=== PATIENT | female | born 1985 | race Two or more races ===

== ENCOUNTER 2022-11-28 15:01 | Inpatient (IN) | payer BC, MEDICAID ==
[~2022-11-28] VITALS: Ht 147.3 cm; Wt 77.0 kg
[2022-11-28 16:28] LABS: BASOPHILS # (AUTO) 0.1 X10'3 (0-0.2); BASOPHILS % (AUTO) 1.1 % (0-1); EOSINOPHILS # (AUTO) 0.1 X10'3 (0-0.9); EOSINOPHILS % (AUTO) 1.9 % (0-6); HEMATOCRIT 38.8 % (35.0-45.0); HEMOGLOBIN 12.1 g/dl (12.0-16.0); LYMPHOCYTES # (AUTO) 1.2 X10'3 (1.1-4.8); LYMPHOCYTES % (AUTO) 19.2 % (21-51); MEAN CORPUSCULAR HEMOGLOBIN 25.8 PG (27.0-31.0); MEAN CORPUSCULAR HGB CONC 31.1 g/dL (33.0-36.5); MEAN CORPUSCULAR VOLUME 82.9 FL (78-98); MEAN PLATELET VOLUME 7.9 FL (7.4-10.4); MONOCYTES # (AUTO) 0.6 X10'3 (0-0.9); NEUTROPHILS # (AUTO) 4.3 X10'3 (1.8-7.7); NEUTROPHILS % (AUTO) 67.8 % (42-75); PLATELET COUNT 353 X10'3 (140-440); RED BLOOD COUNT 4.68 X10'6 (4.20-5.60); RED CELL DISTRIBUTION WIDTH 20.5 % (11.5-14.5); WHITE BLOOD COUNT 6.3 X10'3 (4.5-11.0)
[2022-11-28 16:44] LABS: ALANINE AMINOTRANSFERASE 19 U/L (12-78); ALBUMIN 1.8 G/DL (3.4-5.0); ALBUMIN/GLOBULIN RATIO 0.4 (1.1-1.5); ALKALINE PHOSPHATASE 146 IU/L (46-116); ANION GAP 11 (8-16); ASPARTATE AMINO TRANSFERASE 34 U/L (10-37); BILIRUBIN,TOTAL 1.6 MG/DL (0.1-1.0); BLOOD UREA NITROGEN 15 MG/DL (7-18); BUN/CREATININE RATIO 17.6 (10.0-20.0); CALCIUM 8.1 MG/DL (8.5-10.1); CHLORIDE 102 MMOL/L (99-107); CREATININE 0.85 MG/DL (0.40-0.90); GLUCOSE 137 MG/DL (70-104); POTASSIUM 3.7 MMOL/L (3.5-5.1); SODIUM 139 MMOL/L (135-145); TOTAL CARBON DIOXIDE 26.5 MMOL/L (24-32); TOTAL PROTEIN 6.2 G/DL (6.4-8.2); eCRCL 58 ML/MIN; eGFR 75 ML/MIN
[2022-11-28 16:53] LABS: PRO BRAIN NATRIURETIC PEPTIDE 10273 PG/ML (0-125)
[2022-11-28 17:36] LABS: ANISOCYTOSIS 3+; PLATELET ESTIMATE NORMAL
[2022-11-28 17:37] LABS: ELLIPTOCYTES 1+; SCHISTOCYTES FEW
[2022-11-28] MEDS ORDERED: magnesium 4gm in 100ml NS 100 ML IV PRN (19:25)
[2022-11-28] MEDS ORDERED: ondansetron/PF 4mg/2ml inj IV PRN (19:25)
[2022-11-28] MEDS ORDERED: glucagon, human recombinant 1mg kit SUBCUT PRN (19:25)
[2022-11-28] MEDS ORDERED: DEXTROSE 15 GM of carb/4 tabs (each vial/BOTTLE has 4 tablets) PO PRN ×2 (19:25)
[2022-11-28] MEDS ORDERED: dextrose 50%-water 50ml dispensing syringe IV PRN ×2 (19:25)
[2022-11-28] MEDS ORDERED: potassium Cl 40MEQ/1/2NS 520ml 520 ML IV PRN (19:25)
[2022-11-28] MEDS ORDERED: MESSAGE TO PHARMACY PO ONE (19:25)
[2022-11-28] MEDS ORDERED: magnesium hydroxide 30ml (MOM) UD suspension PO PRN (19:25)
[2022-11-28] MEDS ORDERED: potassium Cl 20 mEq SR tablet PO PRN ×2 (19:25)
[2022-11-28] MEDS ORDERED: magnesium Cl slow-release 64mg tablet PO PRN (19:25)
[2022-11-28] MEDS ORDERED: mag hydrox/Alum hydrox/simeth 30ml oral suspension PO PRN (19:25)
[2022-11-28] MEDS ORDERED: magnesium 2GM in 50ml NS 50 ML IV PRN (19:25)
[2022-11-28] MEDS ORDERED: acetaminophen 325mg tablet PO PRN (19:25)
[2022-11-28] MEDS: K and/or MAG REPLACEMENT MC SCH (20:00)
[2022-11-28] MEDS ORDERED: vancomycin/NS 1 GM ADD-VANTAGE 250 ML IV SCH (20:00)
[2022-11-28 20:01] LABS: HEMOGLOBIN A1C 9.3 % (4.5-6.2)
[2022-11-28] MEDS: docusate sod 100mg capsule PO SCH (20:15)
[2022-11-28] MEDS: insulin glargine (Lantus) pen - multi-dose SQ SCH (21:00)
[2022-11-29] VITALS (7 sets, daily range): BP systolic 97–114; BP diastolic 76–87; PULSE 83–90; RESP 14–17; TEMP 97.1–97.7; O2SAT 95–100
[2022-11-29] MEDS: levoFLOXACIN-Levaquin 500mg/D5 100 ML IV SCH (02:38)
[2022-11-29] MEDS: K and/or MAG REPLACEMENT MC SCH ×2 (08:00→20:00)
[2022-11-29] MEDS ORDERED: enoxaparin 40mg/0.4ml syringe SUBCUT SCH (08:00)
[2022-11-29] MEDS: docusate sod 100mg capsule PO SCH ×2 (08:00→20:00)
[2022-11-29] MEDS ORDERED: vancomycin/NS 1 GM ADD-VANTAGE 250 ML IV SCH (08:00)
[2022-11-29 08:41] LABS: BASOPHILS # (AUTO) 0.1 X10'3 (0-0.2); BASOPHILS % (AUTO) 1.5 % (0-1); EOSINOPHILS # (AUTO) 0.2 X10'3 (0-0.9); EOSINOPHILS % (AUTO) 2.6 % (0-6); HEMATOCRIT 37.4 % (35.0-45.0); HEMOGLOBIN 11.7 g/dl (12.0-16.0); LYMPHOCYTES # (AUTO) 1.1 X10'3 (1.1-4.8); LYMPHOCYTES % (AUTO) 18.3 % (21-51); MEAN CORPUSCULAR HEMOGLOBIN 26.2 PG (27.0-31.0); MEAN CORPUSCULAR HGB CONC 31.4 g/dL (33.0-36.5); MEAN CORPUSCULAR VOLUME 83.4 FL (78-98); MEAN PLATELET VOLUME 7.9 FL (7.4-10.4); MONOCYTES # (AUTO) 0.7 X10'3 (0-0.9); MONOCYTES % (AUTO) 11.1 % (2-12); NEUTROPHILS # (AUTO) 3.9 X10'3 (1.8-7.7); NEUTROPHILS % (AUTO) 66.5 % (42-75); PLATELET COUNT 318 X10'3 (140-440); RED BLOOD COUNT 4.48 X10'6 (4.20-5.60); RED CELL DISTRIBUTION WIDTH 20.8 % (11.5-14.5); WHITE BLOOD COUNT 5.9 X10'3 (4.5-11.0)
[2022-11-29 09:02] LABS: ALANINE AMINOTRANSFERASE 17 U/L (12-78); ALBUMIN 1.7 G/DL (3.4-5.0); ALBUMIN/GLOBULIN RATIO 0.4 (1.1-1.5); ALKALINE PHOSPHATASE 136 IU/L (46-116); ANION GAP 7 (8-16); ASPARTATE AMINO TRANSFERASE 29 U/L (10-37); BILIRUBIN,TOTAL 1.6 MG/DL (0.1-1.0); BLOOD UREA NITROGEN 14 MG/DL (7-18); BUN/CREATININE RATIO 17.9 (10.0-20.0); CALCIUM 8.2 MG/DL (8.5-10.1); CHLORIDE 105 MMOL/L (99-107); CREATININE 0.78 MG/DL (0.40-0.90); GLUCOSE 108 MG/DL (70-104); MAGNESIUM 1.8 MG/DL (1.5-2.4); POTASSIUM 3.8 MMOL/L (3.5-5.1); SODIUM 138 MMOL/L (135-145); TOTAL CARBON DIOXIDE 26.3 MMOL/L (24-32); eCRCL 63 ML/MIN; eGFR 83 ML/MIN
[2022-11-29] MEDS: HYDROcodone/acetaminophen 10/325mg tab PO PRN (10:38)
[2022-11-29] MEDS ORDERED: ATOR80TA PO (12:18)
[2022-11-29] MEDS ORDERED: MIDO10TA PO (12:18)
[2022-11-29] MEDS ORDERED: ASPI-611 PO (12:18)
[2022-11-29] MEDS ORDERED: INSU100V56 SQ (12:18)
[2022-11-29] MEDS ORDERED: INSU100V49 SQ (12:18)
[2022-11-29] MEDS ORDERED: RIVA20TA PO (12:18)
[2022-11-29] MEDS ORDERED: DOCU-148 PO (12:18)
[2022-11-29] MEDS ORDERED: FURO40TA4 PO (12:18)
[2022-11-29] MEDS: furosemide 20 MG/2 ML vial IV SCH ×2 (12:23→20:00)
[2022-11-29] MEDS: rivaroxaban 20mg tablet PO SCH (17:38)
[2022-11-29] MEDS: atorvastatin 20mg tablet PO SCH (21:03)
[2022-11-29] MEDS: insulin glargine (Lantus) pen - multi-dose SQ SCH (21:24)
[2022-11-30] VITALS (8 sets, daily range): BP systolic 105–141; BP diastolic 60–92; PULSE 83–87; RESP 11–20; TEMP 96.9–97.7; O2SAT 94–100
[2022-11-30] MEDS: levoFLOXACIN-Levaquin 500mg/D5 100 ML IV SCH (02:10)
[2022-11-30] MEDS: HYDROcodone/acetaminophen 5mg/325mg tablet PO PRN ×2 (06:02→20:43)
[2022-11-30] MEDS ORDERED: VANCOMYCIN LEVEL IV ONE (07:30)
[2022-11-30 07:31] LABS: BASOPHILS # (AUTO) 0.1 X10'3 (0-0.2); EOSINOPHILS # (AUTO) 0.2 X10'3 (0-0.9); EOSINOPHILS % (AUTO) 3.1 % (0-6); HEMATOCRIT 40.5 % (35.0-45.0); HEMOGLOBIN 12.6 g/dl (12.0-16.0); LYMPHOCYTES # (AUTO) 0.9 X10'3 (1.1-4.8); MEAN CORPUSCULAR HGB CONC 31.1 g/dL (33.0-36.5); MEAN CORPUSCULAR VOLUME 83.6 FL (78-98); MEAN PLATELET VOLUME 7.8 FL (7.4-10.4); MONOCYTES # (AUTO) 0.6 X10'3 (0-0.9); MONOCYTES % (AUTO) 8.1 % (2-12); NEUTROPHILS # (AUTO) 5.2 X10'3 (1.8-7.7); NEUTROPHILS % (AUTO) 74.8 % (42-75); PLATELET COUNT 327 X10'3 (140-440); RED BLOOD COUNT 4.84 X10'6 (4.20-5.60); RED CELL DISTRIBUTION WIDTH 20.6 % (11.5-14.5)
[2022-11-30 07:55] LABS: ALANINE AMINOTRANSFERASE 17 U/L (12-78); ALBUMIN 1.8 G/DL (3.4-5.0); ALBUMIN/GLOBULIN RATIO 0.4 (1.1-1.5); ALKALINE PHOSPHATASE 155 IU/L (46-116); ANION GAP 6 (8-16); ASPARTATE AMINO TRANSFERASE 27 U/L (10-37); BILIRUBIN,TOTAL 1.1 MG/DL (0.1-1.0); BLOOD UREA NITROGEN 13 MG/DL (7-18); BUN/CREATININE RATIO 15.3 (10.0-20.0); CALCIUM 8.1 MG/DL (8.5-10.1); CHLORIDE 104 MMOL/L (99-107); CREATININE 0.85 MG/DL (0.40-0.90); GLUCOSE 103 MG/DL (70-104); MAGNESIUM 1.8 MG/DL (1.5-2.4); POTASSIUM 3.6 MMOL/L (3.5-5.1); SODIUM 137 MMOL/L (135-145); TOTAL PROTEIN 6.4 G/DL (6.4-8.2); eCRCL 58 ML/MIN; eGFR 75 ML/MIN
[2022-11-30] MEDS: K and/or MAG REPLACEMENT MC SCH ×2 (08:00→20:00)
[2022-11-30] MEDS ORDERED: lisinopril 2.5mg tablet PO SCH (08:05)
[2022-11-30] MEDS: furosemide 20 MG/2 ML vial IV SCH ×2 (08:24→20:36)
[2022-11-30] MEDS: aspirin 81mg tab.chew PO SCH (08:24)
[2022-11-30] MEDS: docusate sod 100mg capsule PO SCH (08:24)
[2022-11-30] MEDS: insulin Lispro (HumaLOG) vial - multi-dose SQ SCH (14:00)
[2022-11-30] MEDS: rivaroxaban 20mg tablet PO SCH (17:14)
[2022-11-30] MEDS: atorvastatin 20mg tablet PO SCH (20:42)
[2022-11-30] MEDS: insulin glargine (Lantus) pen - multi-dose SQ SCH (20:46)
[2022-12-01] VITALS (7 sets, daily range): BP systolic 107–138; BP diastolic 60–75; PULSE 70–88; RESP 15–18; TEMP 97.2–98.7; O2SAT 93–99
[2022-12-01] MEDS: levoFLOXACIN-Levaquin 500mg/D5 100 ML IV SCH (01:18)
[2022-12-01 07:11] LABS: BASOPHILS # (AUTO) 0.1 X10'3 (0-0.2); BASOPHILS % (AUTO) 0.6 % (0-1); EOSINOPHILS # (AUTO) 0.3 X10'3 (0-0.9); EOSINOPHILS % (AUTO) 3.2 % (0-6); HEMATOCRIT 39.8 % (35.0-45.0); HEMOGLOBIN 12.6 g/dl (12.0-16.0); LYMPHOCYTES # (AUTO) 1.2 X10'3 (1.1-4.8); LYMPHOCYTES % (AUTO) 15.4 % (21-51); MEAN CORPUSCULAR HEMOGLOBIN 26.1 PG (27.0-31.0); MEAN CORPUSCULAR HGB CONC 31.7 g/dL (33.0-36.5); MEAN CORPUSCULAR VOLUME 82.5 FL (78-98); MEAN PLATELET VOLUME 7.7 FL (7.4-10.4); MONOCYTES # (AUTO) 0.7 X10'3 (0-0.9); MONOCYTES % (AUTO) 9.2 % (2-12); NEUTROPHILS # (AUTO) 5.6 X10'3 (1.8-7.7); NEUTROPHILS % (AUTO) 71.6 % (42-75); PLATELET COUNT 355 X10'3 (140-440); RED BLOOD COUNT 4.83 X10'6 (4.20-5.60); RED CELL DISTRIBUTION WIDTH 20.4 % (11.5-14.5); WHITE BLOOD COUNT 7.9 X10'3 (4.5-11.0)
[2022-12-01 07:29] LABS: ALANINE AMINOTRANSFERASE 16 U/L (12-78); ALBUMIN 1.8 G/DL (3.4-5.0); ALBUMIN/GLOBULIN RATIO 0.4 (1.1-1.5); ALKALINE PHOSPHATASE 136 IU/L (46-116); ANION GAP 5 (8-16); ASPARTATE AMINO TRANSFERASE 26 U/L (10-37); BLOOD UREA NITROGEN 15 MG/DL (7-18); BUN/CREATININE RATIO 18.1 (10.0-20.0); CALCIUM 8.1 MG/DL (8.5-10.1); CHLORIDE 103 MMOL/L (99-107); CREATININE 0.83 MG/DL (0.40-0.90); GLUCOSE 57 MG/DL (70-104); MAGNESIUM 1.5 MG/DL (1.5-2.4); POTASSIUM 3.6 MMOL/L (3.5-5.1); SODIUM 140 MMOL/L (135-145); TOTAL CARBON DIOXIDE 32.5 MMOL/L (24-32); TOTAL PROTEIN 6.2 G/DL (6.4-8.2); eCRCL 59 ML/MIN; eGFR 77 ML/MIN
[2022-12-01] MEDS: aspirin 81mg tab.chew PO SCH (07:55)
[2022-12-01] MEDS: lisinopril 2.5mg tablet PO SCH (07:57)
[2022-12-01] MEDS: HYDROcodone/acetaminophen 10/325mg tab PO PRN ×2 (07:58→20:31)
[2022-12-01] MEDS: K and/or MAG REPLACEMENT MC SCH ×2 (08:00→20:00)
[2022-12-01 08:44] LABS: PLATELET ESTIMATE NORMAL
[2022-12-01 08:45] LABS: ANISOCYTOSIS 3+; ELLIPTOCYTES 1+; POLYCHROMASIA 1+; SCHISTOCYTES FEW; TEAR DROP CELLS FEW
[2022-12-01] MEDS: furosemide 20 MG/2 ML vial IV SCH ×2 (10:16→21:28)
[2022-12-01] MEDS ORDERED: iohexol 300mg/ml 100ml inj. ONE (10:40)
[2022-12-01] MEDS: rivaroxaban 20mg tablet PO SCH (19:32)
[2022-12-01] MEDS: atorvastatin 20mg tablet PO SCH (20:31)
[2022-12-01] MEDS: insulin glargine (Lantus) pen - multi-dose SQ SCH (21:00)
[2022-12-02] MEDS: levoFLOXACIN 500mg tablet PO SCH (00:14)
[2022-12-02] MEDS: HYDROcodone/acetaminophen 10/325mg tab PO PRN (00:15)
[2022-12-02 02:00] VITALS: BP 104/71; PULSE 78; RESP 16; TEMP 97.3; O2SAT 92
[2022-12-02 06:04] LABS: BASOPHILS # (AUTO) 0.1 X10'3 (0-0.2); BASOPHILS % (AUTO) 0.8 % (0-1); EOSINOPHILS # (AUTO) 0.3 X10'3 (0-0.9); EOSINOPHILS % (AUTO) 3.7 % (0-6); HEMATOCRIT 37.4 % (35.0-45.0); HEMOGLOBIN 11.8 g/dl (12.0-16.0); LYMPHOCYTES # (AUTO) 1.3 X10'3 (1.1-4.8); LYMPHOCYTES % (AUTO) 18.3 % (21-51); MEAN CORPUSCULAR HEMOGLOBIN 26.3 PG (27.0-31.0); MEAN CORPUSCULAR HGB CONC 31.6 g/dL (33.0-36.5); MEAN CORPUSCULAR VOLUME 83.1 FL (78-98); MEAN PLATELET VOLUME 7.6 FL (7.4-10.4); MONOCYTES # (AUTO) 0.8 X10'3 (0-0.9); MONOCYTES % (AUTO) 10.9 % (2-12); NEUTROPHILS # (AUTO) 4.7 X10'3 (1.8-7.7); NEUTROPHILS % (AUTO) 66.3 % (42-75); PLATELET COUNT 352 X10'3 (140-440); RED CELL DISTRIBUTION WIDTH 20.6 % (11.5-14.5); WHITE BLOOD COUNT 7.1 X10'3 (4.5-11.0)
[2022-12-02 06:30] LABS: ALANINE AMINOTRANSFERASE 13 U/L (12-78); ALBUMIN 1.7 G/DL (3.4-5.0); ALBUMIN/GLOBULIN RATIO 0.4 (1.1-1.5); ALKALINE PHOSPHATASE 125 IU/L (46-116); ANION GAP 4 (8-16); ASPARTATE AMINO TRANSFERASE 26 U/L (10-37); BILIRUBIN,TOTAL 0.7 MG/DL (0.1-1.0); BLOOD UREA NITROGEN 18 MG/DL (7-18); BUN/CREATININE RATIO 22.2 (10.0-20.0); CALCIUM 8.1 MG/DL (8.5-10.1); CHLORIDE 101 MMOL/L (99-107); CREATININE 0.81 MG/DL (0.40-0.90); GLUCOSE 99 MG/DL (70-104); MAGNESIUM 1.5 MG/DL (1.5-2.4); SODIUM 136 MMOL/L (135-145); TOTAL CARBON DIOXIDE 31.2 MMOL/L (24-32); TOTAL PROTEIN 5.9 G/DL (6.4-8.2); eCRCL 61 ML/MIN; eGFR 79 ML/MIN
[2022-12-02 07:00] VITALS: BP 83/56; PULSE 93; RESP 15; TEMP 97.7; O2SAT 100
[2022-12-02 08:53] LABS: ANISOCYTOSIS 3+; PLATELET ESTIMATE NORMAL
[2022-12-02 08:54] LABS: MICROCYTOSIS 1+
[2022-12-02 10:00] VITALS: BP_SYST 107; BP_SYST 85; BP_DIAS 59; BP_DIAS 67; PULSE 59; RESP 20; TEMP 97.1; O2SAT 100
[2022-12-02] MEDS: furosemide 20 MG/2 ML vial IV SCH ×2 (10:44→22:30)
[2022-12-02] MEDS: aspirin 81mg tab.chew PO SCH (10:44)
[2022-12-02] MEDS: lisinopril 2.5mg tablet PO SCH (10:44)
[2022-12-02] MEDS: K and/or MAG REPLACEMENT MC SCH ×2 (10:44→20:00)
[2022-12-02 18:00] VITALS: BP 103/66; PULSE 107; RESP 16; TEMP 97.4; O2SAT 100
[2022-12-02 20:00] VITALS: RESP 16; O2SAT 100
[2022-12-02] MEDS: atorvastatin 20mg tablet PO SCH (20:40)
[2022-12-02] MEDS: rivaroxaban 20mg tablet PO SCH (20:40)
[2022-12-02] MEDS: insulin glargine (Lantus) pen - multi-dose SQ SCH (21:00)
[2022-12-02 22:00] VITALS: BP 113/76; PULSE 98; RESP 16; TEMP 97.5; O2SAT 97
[2022-12-03] MEDS: levoFLOXACIN 500mg tablet PO SCH (00:32)
[2022-12-03] MEDS: HYDROcodone/acetaminophen 10/325mg tab PO PRN ×2 (00:34→19:06)
[2022-12-03 02:00] VITALS: BP 130/76; PULSE 109; RESP 21; TEMP 97.5; O2SAT 96
[2022-12-03 07:00] VITALS: BP 110/74; PULSE 98; RESP 20; TEMP 97.7; O2SAT 100
[2022-12-03 07:16] LABS: BASOPHILS # (AUTO) 0.1 X10'3 (0-0.2); BASOPHILS % (AUTO) 0.8 % (0-1); EOSINOPHILS # (AUTO) 0.1 X10'3 (0-0.9); EOSINOPHILS % (AUTO) 1.9 % (0-6); HEMATOCRIT 39.3 % (35.0-45.0); HEMOGLOBIN 12.4 g/dl (12.0-16.0); LYMPHOCYTES # (AUTO) 0.9 X10'3 (1.1-4.8); LYMPHOCYTES % (AUTO) 11.8 % (21-51); MEAN CORPUSCULAR HGB CONC 31.6 g/dL (33.0-36.5); MEAN CORPUSCULAR VOLUME 82.4 FL (78-98); MEAN PLATELET VOLUME 7.8 FL (7.4-10.4); MONOCYTES # (AUTO) 0.7 X10'3 (0-0.9); NEUTROPHILS # (AUTO) 5.6 X10'3 (1.8-7.7); NEUTROPHILS % (AUTO) 75.5 % (42-75); PLATELET COUNT 349 X10'3 (140-440); RED BLOOD COUNT 4.77 X10'6 (4.20-5.60); RED CELL DISTRIBUTION WIDTH 20.8 % (11.5-14.5); WHITE BLOOD COUNT 7.4 X10'3 (4.5-11.0)
[2022-12-03 07:45] LABS: ALANINE AMINOTRANSFERASE 14 U/L (12-78); ALBUMIN 1.9 G/DL (3.4-5.0); ALBUMIN/GLOBULIN RATIO 0.4 (1.1-1.5); ALKALINE PHOSPHATASE 138 IU/L (46-116); ANION GAP 5 (8-16); ASPARTATE AMINO TRANSFERASE 29 U/L (10-37); BILIRUBIN,TOTAL 0.9 MG/DL (0.1-1.0); BLOOD UREA NITROGEN 21 MG/DL (7-18); BUN/CREATININE RATIO 23.9 (10.0-20.0); CALCIUM 8.2 MG/DL (8.5-10.1); CHLORIDE 99 MMOL/L (99-107); CREATININE 0.88 MG/DL (0.40-0.90); GLUCOSE 158 MG/DL (70-104); POTASSIUM 3.8 MMOL/L (3.5-5.1); SODIUM 134 MMOL/L (135-145); TOTAL CARBON DIOXIDE 29.8 MMOL/L (24-32); TOTAL PROTEIN 6.5 G/DL (6.4-8.2); eCRCL 56 ML/MIN; eGFR 72 ML/MIN
[2022-12-03] MEDS: K and/or MAG REPLACEMENT MC SCH ×2 (08:00→20:00)
[2022-12-03] MEDS: furosemide 20 MG/2 ML vial IV SCH ×2 (08:11→21:36)
[2022-12-03] MEDS: aspirin 81mg tab.chew PO SCH (08:11)
[2022-12-03] MEDS: lisinopril 2.5mg tablet PO SCH (08:11)
[2022-12-03 11:48] LABS: CHOL/HDL RATIO 3.1 (0.00-4.99); CHOLESTEROL 111 MG/DL (0-200); HDL CHOLESTEROL 36 MG/DL (35-60); LDL CHOLESTEROL 63 MG/DL (50-100); TRIGLYCERIDES 63 MG/DL (20-135)
[2022-12-03 16:00] VITALS: BP 109/75; PULSE 50; RESP 16; TEMP 97.3; O2SAT 99
[2022-12-03 18:00] VITALS: BP 109/77; PULSE 70; RESP 16; TEMP 97.8; O2SAT 93
[2022-12-03 20:00] VITALS: RESP 16; O2SAT 93
[2022-12-03] MEDS: atorvastatin 20mg tablet PO SCH (20:15)
[2022-12-03] MEDS: rivaroxaban 20mg tablet PO SCH (20:15)
[2022-12-03] MEDS: insulin glargine (Lantus) pen - multi-dose SQ SCH (20:17)
[2022-12-04] VITALS (8 sets, daily range): BP systolic 89–103; BP diastolic 44–77; PULSE 86–98; RESP 12–28; TEMP 97.7–98.2; O2SAT 93–97
[2022-12-04] MEDS: HYDROcodone/acetaminophen 10/325mg tab PO PRN ×2 (01:47→20:43)
[2022-12-04] MEDS: K and/or MAG REPLACEMENT MC SCH ×2 (08:00→20:00)
[2022-12-04] MEDS: furosemide 20 MG/2 ML vial IV SCH ×3 (08:00→20:00)
[2022-12-04] MEDS: lisinopril 2.5mg tablet PO SCH (08:00)
[2022-12-04] MEDS: aspirin 81mg tab.chew PO SCH (08:00)
[2022-12-04] MEDS: insulin Lispro (HumaLOG) vial - multi-dose SQ SCH ×2 (08:58→14:17)
[2022-12-04] MEDS: HYDROcodone/acetaminophen 5mg/325mg tablet PO PRN (12:39)
[2022-12-04] MEDS: atorvastatin 20mg tablet PO SCH (20:44)
[2022-12-04] MEDS: rivaroxaban 20mg tablet PO SCH (20:44)
[2022-12-04] MEDS: insulin glargine (Lantus) pen - multi-dose SQ SCH (21:00)
[2022-12-05] VITALS (10 sets, daily range): BP systolic 95–124; BP diastolic 57–78; PULSE 56–103; RESP 14–24; TEMP 97.5–98.4; O2SAT 94–96
[2022-12-05] MEDS: lisinopril 2.5mg tablet PO SCH (08:00)
[2022-12-05] MEDS: K and/or MAG REPLACEMENT MC SCH ×2 (08:00→20:00)
[2022-12-05] MEDS: furosemide 20 MG/2 ML vial IV SCH ×2 (08:53→19:51)
[2022-12-05] MEDS: aspirin 81mg tab.chew PO SCH (08:53)
[2022-12-05] MEDS: insulin Lispro (HumaLOG) vial - multi-dose SQ SCH ×3 (08:59→19:57)
[2022-12-05] MEDS: rivaroxaban 20mg tablet PO SCH (17:54)
[2022-12-05] MEDS: HYDROcodone/acetaminophen 10/325mg tab PO PRN (19:51)
[2022-12-05] MEDS: atorvastatin 20mg tablet PO SCH (21:31)
[2022-12-05] MEDS: insulin glargine (Lantus) pen - multi-dose SQ SCH (21:39)
[2022-12-06] MEDS: HYDROcodone/acetaminophen 10/325mg tab PO PRN ×2 (05:02→20:08)
[2022-12-06 06:00] VITALS: BP 113/82; PULSE 107; RESP 15; TEMP 98; O2SAT 92
[2022-12-06] MEDS: aspirin 81mg tab.chew PO SCH (07:27)
[2022-12-06] MEDS: furosemide 20 MG/2 ML vial IV SCH ×2 (07:27→19:48)
[2022-12-06 07:45] VITALS: RESP 16
[2022-12-06] MEDS: lisinopril 2.5mg tablet PO SCH (08:00)
[2022-12-06] MEDS: K and/or MAG REPLACEMENT MC SCH ×2 (08:00→20:00)
[2022-12-06] MEDS: insulin Lispro (HumaLOG) vial - multi-dose SQ SCH ×2 (09:08→13:40)
[2022-12-06 11:00] VITALS: BP 111/78; PULSE 69; RESP 17; TEMP 98.9; O2SAT 100
[2022-12-06 12:39] LABS: ALBUMIN 1.8 G/DL (3.4-5.0); ANION GAP 6 (8-16); BLOOD UREA NITROGEN 29 MG/DL (7-18); BUN/CREATININE RATIO 35.8 (10.0-20.0); CALCIUM 8.6 MG/DL (8.5-10.1); CHLORIDE 97 MMOL/L (99-107); CREATININE 0.81 MG/DL (0.40-0.90); GLUCOSE 146 MG/DL (70-104); SODIUM 131 MMOL/L (135-145); TOTAL CARBON DIOXIDE 28.2 MMOL/L (24-32); eCRCL 61 ML/MIN; eGFR 79 ML/MIN
[2022-12-06 12:53] LABS: POTASSIUM 4.7 MMOL/L (3.5-5.1)
[2022-12-06 15:00] VITALS: BP 126/84; PULSE 114; RESP 21; TEMP 98.2; O2SAT 98
[2022-12-06 18:00] VITALS: BP 109/77; PULSE 114; RESP 18; TEMP 97.9; O2SAT 93
[2022-12-06] MEDS: rivaroxaban 20mg tablet PO SCH (18:05)
[2022-12-06] MEDS: atorvastatin 20mg tablet PO SCH (20:08)
[2022-12-06 21:00] VITALS: BP 107/77; PULSE 113; RESP 18; TEMP 98.6; O2SAT 95
[2022-12-06] MEDS: insulin glargine (Lantus) pen - multi-dose SQ SCH (21:40)
[2022-12-07 06:00] VITALS: BP 107/74; PULSE 110; RESP 16; TEMP 98.1; O2SAT 96
[2022-12-07] MEDS: K and/or MAG REPLACEMENT MC SCH ×2 (06:54→20:00)
[2022-12-07] MEDS: aspirin 81mg tab.chew PO SCH (07:29)
[2022-12-07] MEDS: furosemide 20 MG/2 ML vial IV SCH ×2 (07:31→20:29)
[2022-12-07] MEDS: insulin Lispro (HumaLOG) vial - multi-dose SQ SCH ×2 (09:05→13:54)
[2022-12-07 10:00] VITALS: BP 128/74; PULSE 106; RESP 14; TEMP 97.9; O2SAT 95
[2022-12-07] MEDS: lisinopril 5mg tablet PO SCH (12:30)
[2022-12-07 18:00] VITALS: BP 107/74; PULSE 107; RESP 15; TEMP 98.8; O2SAT 98
[2022-12-07] MEDS: rivaroxaban 20mg tablet PO SCH (18:02)
[2022-12-07 20:00] VITALS: RESP 14; O2SAT 98
[2022-12-07] MEDS: atorvastatin 20mg tablet PO SCH (20:29)
[2022-12-07] MEDS: HYDROcodone/acetaminophen 10/325mg tab PO PRN (20:59)
[2022-12-07] MEDS: insulin glargine (Lantus) pen - multi-dose SQ SCH (21:57)
[2022-12-07 22:00] VITALS: BP 117/79; PULSE 105; RESP 16; TEMP 98.1; O2SAT 94
[2022-12-08 07:00] VITALS: BP 107/70; PULSE 101; RESP 16; TEMP 98; O2SAT 93
[2022-12-08] MEDS: K and/or MAG REPLACEMENT MC SCH ×2 (08:00→20:00)
[2022-12-08] MEDS: aspirin 81mg tab.chew PO SCH (09:05)
[2022-12-08] MEDS: furosemide 20 MG/2 ML vial IV SCH ×2 (09:05→21:26)
[2022-12-08] MEDS: insulin Lispro (HumaLOG) vial - multi-dose SQ SCH ×2 (09:09→14:23)
[2022-12-08 11:00] VITALS: BP 97/66; PULSE 101; RESP 18; TEMP 97.6; O2SAT 97
[2022-12-08] MEDS: lisinopril 5mg tablet PO SCH (12:00)
[2022-12-08] MEDS: HYDROcodone/acetaminophen 5mg/325mg tablet PO PRN ×2 (17:46→22:10)
[2022-12-08] MEDS: rivaroxaban 20mg tablet PO SCH (17:46)
[2022-12-08 18:00] VITALS: BP 117/66; PULSE 94; RESP 18; TEMP 97.3; O2SAT 95
[2022-12-08 19:55] VITALS: RESP 16; O2SAT 95
[2022-12-08] MEDS: atorvastatin 20mg tablet PO SCH (21:27)
[2022-12-08 22:00] VITALS: BP 136/68; PULSE 99; RESP 16; TEMP 97.6; O2SAT 96
[2022-12-08] MEDS: insulin glargine (Lantus) pen - multi-dose SQ SCH (22:20)
[2022-12-09 06:00] VITALS: BP 121/62; PULSE 92; RESP 17; TEMP 97.8; O2SAT 98
[2022-12-09] MEDS: K and/or MAG REPLACEMENT MC SCH ×2 (08:00→20:07)
[2022-12-09] MEDS: aspirin 81mg tab.chew PO SCH (08:54)
[2022-12-09 09:23] LABS: BASOPHILS # (AUTO) 0.1 X10'3 (0-0.2); BASOPHILS % (AUTO) 0.9 % (0-1); EOSINOPHILS # (AUTO) 0.3 X10'3 (0-0.9); EOSINOPHILS % (AUTO) 3.3 % (0-6); HEMATOCRIT 34.8 % (35.0-45.0); HEMOGLOBIN 11.1 g/dl (12.0-16.0); LYMPHOCYTES # (AUTO) 0.8 X10'3 (1.1-4.8); LYMPHOCYTES % (AUTO) 8.5 % (21-51); MEAN CORPUSCULAR HEMOGLOBIN 26.2 PG (27.0-31.0); MEAN CORPUSCULAR HGB CONC 31.9 g/dL (33.0-36.5); MEAN CORPUSCULAR VOLUME 82.3 FL (78-98); MEAN PLATELET VOLUME 7.5 FL (7.4-10.4); MONOCYTES % (AUTO) 9.8 % (2-12); NEUTROPHILS # (AUTO) 7.7 X10'3 (1.8-7.7); NEUTROPHILS % (AUTO) 77.5 % (42-75); PLATELET COUNT 348 X10'3 (140-440); RED BLOOD COUNT 4.23 X10'6 (4.20-5.60); RED CELL DISTRIBUTION WIDTH 20.6 % (11.5-14.5); WHITE BLOOD COUNT 9.9 X10'3 (4.5-11.0)
[2022-12-09 09:46] LABS: ALANINE AMINOTRANSFERASE 14 U/L (12-78); ALBUMIN 1.9 G/DL (3.4-5.0); ALBUMIN/GLOBULIN RATIO 0.4 (1.1-1.5); ALKALINE PHOSPHATASE 190 IU/L (46-116); ANION GAP 5 (8-16); ASPARTATE AMINO TRANSFERASE 40 U/L (10-37); BILIRUBIN,TOTAL 0.9 MG/DL (0.1-1.0); BLOOD UREA NITROGEN 35 MG/DL (7-18); BUN/CREATININE RATIO 38.9 (10.0-20.0); CALCIUM 8.5 MG/DL (8.5-10.1); CHLORIDE 96 MMOL/L (99-107); GLUCOSE 164 MG/DL (70-104); POTASSIUM 3.9 MMOL/L (3.5-5.1); SODIUM 132 MMOL/L (135-145); TOTAL CARBON DIOXIDE 31.1 MMOL/L (24-32); TOTAL PROTEIN 7.1 G/DL (6.4-8.2); eCRCL 55 ML/MIN; eGFR 70 ML/MIN
[2022-12-09 10:20] LABS: ANISOCYTOSIS 3+; PLATELET ESTIMATE NORMAL
[2022-12-09 10:21] LABS: HYPOCHROMASIA 1+
[2022-12-09] MEDS: furosemide 20 MG/2 ML vial IV SCH ×2 (10:21→21:09)
[2022-12-09 11:00] VITALS: BP 103/60; PULSE 96; RESP 18; TEMP 97.8; O2SAT 96
[2022-12-09] MEDS: lisinopril 5mg tablet PO SCH (12:00)
[2022-12-09] MEDS: cephalexin 250mg capsule PO SCH ×2 (17:10→23:34)
[2022-12-09] MEDS: rivaroxaban 20mg tablet PO SCH (17:10)
[2022-12-09 18:00] VITALS: BP 129/80; PULSE 102; RESP 16; TEMP 97.7; O2SAT 96
[2022-12-09] MEDS: HYDROcodone/acetaminophen 10/325mg tab PO PRN ×2 (19:24→23:37)
[2022-12-09 20:30] VITALS: RESP 18; O2SAT 98
[2022-12-09] MEDS: atorvastatin 20mg tablet PO SCH (21:14)
[2022-12-09] MEDS: insulin glargine (Lantus) pen - multi-dose SQ SCH (21:14)
[2022-12-09] MEDS: gabapentin 300mg capsule PO SCH ×2 (22:10→22:36)
[2022-12-10 06:00] VITALS: BP 120/64; PULSE 100; RESP 18; TEMP 98; O2SAT 96
[2022-12-10] MEDS: K and/or MAG REPLACEMENT MC SCH ×2 (08:00→20:00)
[2022-12-10] MEDS: furosemide 20 MG/2 ML vial IV SCH ×2 (08:33→20:50)
[2022-12-10] MEDS: aspirin 81mg tab.chew PO SCH (08:38)
[2022-12-10] MEDS: gabapentin 300mg capsule PO SCH ×2 (08:38→20:57)
[2022-12-10] MEDS: cephalexin 250mg capsule PO SCH ×2 (08:38→16:00)
[2022-12-10 10:00] VITALS: BP 123/83; PULSE 100; RESP 16; TEMP 97.3; O2SAT 95
[2022-12-10] MEDS: lisinopril 5mg tablet PO SCH (12:00)
[2022-12-10] MEDS: rivaroxaban 20mg tablet PO SCH (17:18)
[2022-12-10 18:00] VITALS: BP 116/74; PULSE 105; RESP 16; TEMP 98; O2SAT 97
[2022-12-10] MEDS: atorvastatin 20mg tablet PO SCH (20:57)
[2022-12-10] MEDS: insulin glargine (Lantus) pen - multi-dose SQ SCH (21:20)
[2022-12-10 22:00] VITALS: BP 117/81; PULSE 108; RESP 14; TEMP 98.3; O2SAT 100
[2022-12-10] MEDS ORDERED: bisacodyl 10mg suppository rectal RC PRN (22:10)
[2022-12-11] MEDS: cephalexin 250mg capsule PO SCH ×4 (00:31→23:48)
[2022-12-11] MEDS: HYDROcodone/acetaminophen 10/325mg tab PO PRN ×4 (00:37→16:33)
[2022-12-11 06:00] VITALS: BP 105/70; PULSE 106; RESP 18; TEMP 99.1; O2SAT 97
[2022-12-11] MEDS: K and/or MAG REPLACEMENT MC SCH ×2 (07:47→20:00)
[2022-12-11] MEDS: gabapentin 300mg capsule PO SCH ×2 (07:49→19:47)
[2022-12-11] MEDS: aspirin 81mg tab.chew PO SCH (07:49)
[2022-12-11] MEDS: furosemide 20 MG/2 ML vial IV SCH ×2 (07:50→19:47)
[2022-12-11 10:00] VITALS: BP 115/86; PULSE 100; RESP 14; TEMP 98.3; O2SAT 99
[2022-12-11] MEDS: lisinopril 5mg tablet PO SCH (12:07)
[2022-12-11] MEDS: rivaroxaban 20mg tablet PO SCH (17:57)
[2022-12-11 18:00] VITALS: BP 80/50; PULSE 91; RESP 16; TEMP 98; O2SAT 94
[2022-12-11 20:00] VITALS: RESP 16; O2SAT 94
[2022-12-11] MEDS: atorvastatin 20mg tablet PO SCH (21:03)
[2022-12-11] MEDS: insulin glargine (Lantus) pen - multi-dose SQ SCH (21:13)
[2022-12-11 22:00] VITALS: BP 86/53; PULSE 91; RESP 13; TEMP 97.6; O2SAT 100
[2022-12-12] MEDS: HYDROcodone/acetaminophen 10/325mg tab PO PRN ×3 (04:03→20:38)
[2022-12-12 06:45] VITALS: BP 84/63; PULSE 96; RESP 16; TEMP 98.9; O2SAT 98
[2022-12-12 08:00] VITALS: RESP 16; O2SAT 98
[2022-12-12] MEDS: K and/or MAG REPLACEMENT MC SCH ×2 (08:00→20:00)
[2022-12-12] MEDS: aspirin 81mg tab.chew PO SCH (08:21)
[2022-12-12] MEDS: furosemide 20 MG/2 ML vial IV SCH ×2 (08:21→20:35)
[2022-12-12] MEDS: cephalexin 250mg capsule PO SCH ×2 (08:21→17:09)
[2022-12-12] MEDS: gabapentin 300mg capsule PO SCH ×2 (08:21→20:38)
[2022-12-12 09:27] LABS: BASOPHILS # (AUTO) 0.1 X10'3 (0-0.2); BASOPHILS % (AUTO) 0.4 % (0-1); EOSINOPHILS # (AUTO) 0.2 X10'3 (0-0.9); EOSINOPHILS % (AUTO) 1.7 % (0-6); HEMOGLOBIN 10.7 g/dl (12.0-16.0); LYMPHOCYTES # (AUTO) 0.8 X10'3 (1.1-4.8); LYMPHOCYTES % (AUTO) 5.4 % (21-51); MEAN CORPUSCULAR HEMOGLOBIN 26.1 PG (27.0-31.0); MEAN CORPUSCULAR HGB CONC 31.6 g/dL (33.0-36.5); MEAN CORPUSCULAR VOLUME 82.7 FL (78-98); MEAN PLATELET VOLUME 7.6 FL (7.4-10.4); MONOCYTES # (AUTO) 1.1 X10'3 (0-0.9); MONOCYTES % (AUTO) 7.9 % (2-12); NEUTROPHILS # (AUTO) 11.9 X10'3 (1.8-7.7); NEUTROPHILS % (AUTO) 84.6 % (42-75); PLATELET COUNT 423 X10'3 (140-440); RED BLOOD COUNT 4.11 X10'6 (4.20-5.60); RED CELL DISTRIBUTION WIDTH 20.9 % (11.5-14.5); WHITE BLOOD COUNT 14.1 X10'3 (4.5-11.0)
[2022-12-12 09:34] LABS: ALANINE AMINOTRANSFERASE 23 U/L (12-78); ALBUMIN 2.1 G/DL (3.4-5.0); ALBUMIN/GLOBULIN RATIO 0.4 (1.1-1.5); ALKALINE PHOSPHATASE 248 IU/L (46-116); ANION GAP 4 (8-16); ASPARTATE AMINO TRANSFERASE 47 U/L (10-37); BILIRUBIN,TOTAL 1.1 MG/DL (0.1-1.0); BLOOD UREA NITROGEN 60 MG/DL (7-18); BUN/CREATININE RATIO 54.1 (10.0-20.0); CALCIUM 8.8 MG/DL (8.5-10.1); CHLORIDE 94 MMOL/L (99-107); CREATINE KINASE 121 U/L (26-192); CREATININE 1.11 MG/DL (0.40-0.90); GLUCOSE 111 MG/DL (70-104); POTASSIUM 3.7 MMOL/L (3.5-5.1); SODIUM 128 MMOL/L (135-145); TOTAL CARBON DIOXIDE 30.5 MMOL/L (24-32); TOTAL PROTEIN 7.7 G/DL (6.4-8.2); eCRCL 44 ML/MIN; eGFR 55 ML/MIN
[2022-12-12 10:00] VITALS: BP 97/43; PULSE 69; RESP 16; TEMP 98.1; O2SAT 97
[2022-12-12 10:55] LABS: ANISOCYTOSIS 3+; HYPOCHROMASIA 1+; PLATELET ESTIMATE NORMAL; SCHISTOCYTES FEW
[2022-12-12 10:56] LABS: ELLIPTOCYTES FEW
[2022-12-12] MEDS: rivaroxaban 20mg tablet PO SCH (17:09)
[2022-12-12 18:00] VITALS: BP 113/59; PULSE 90; RESP 15; TEMP 97.7; O2SAT 92
[2022-12-12 20:10] VITALS: RESP 15; O2SAT 92
[2022-12-12 20:34] VITALS: BP 111/75; PULSE 91
[2022-12-12] MEDS: atorvastatin 20mg tablet PO SCH (20:38)
[2022-12-13] VITALS (10 sets, daily range): BP systolic 82–128; BP diastolic 53–88; PULSE 78–97; RESP 11–17; TEMP 97.6–98.7; O2SAT 86–100
[2022-12-13] MEDS: cephalexin 250mg capsule PO SCH ×3 (00:01→16:05)
[2022-12-13] MEDS: HYDROcodone/acetaminophen 10/325mg tab PO PRN ×3 (02:57→22:15)
[2022-12-13] MEDS: K and/or MAG REPLACEMENT MC SCH ×2 (06:32→20:00)
[2022-12-13] MEDS: aspirin 81mg tab.chew PO SCH (08:00)
[2022-12-13] MEDS: gabapentin 300mg capsule PO SCH ×2 (08:08→20:52)
[2022-12-13] MEDS: furosemide 20 MG/2 ML vial IV SCH ×2 (08:08→20:51)
[2022-12-13] MEDS ORDERED: fentaNYL/PF 50MCG/1 ML 2ML syringe IV PRN ×2 (08:45)
[2022-12-13] MEDS ORDERED: HYDROmorphone/PF 0.2 MG/ML SYRINGE IV PRN ×2 (08:45)
[2022-12-13] MEDS ORDERED: hydrALAZINE 20mg/ml inj. IV PRN (08:45)
[2022-12-13] MEDS ORDERED: ringers solution, lacted 1,000 ML IV SCH (08:45)
[2022-12-13] MEDS ORDERED: enalaprilat dihydrate 2.5mg/2ml vial IV PRN (08:45)
[2022-12-13] MEDS ORDERED: ondansetron/PF 4mg/2ml inj IV PRN (08:45)
[2022-12-13] MEDS ORDERED: propofol inj 20 ML IV ONE (11:06)
[2022-12-13] MEDS ORDERED: ePHEDrine 50MG/ML INJ. ONE (11:06)
[2022-12-13] MEDS ORDERED: fentaNYL/PF 50MCG/1 ML 2ML syringe ONE (11:06)
[2022-12-13] MEDS ORDERED: midazolam 1 mg/ML 2ml injection ONE (11:06)
[2022-12-13] MEDS ORDERED: ondansetron/PF 4mg/2ml inj ONE (11:14)
[2022-12-13] MEDS ORDERED: albumin (Human) 5% 250ml 250 ML IV ONE ×2 (11:24→11:34)
[2022-12-13] MEDS ORDERED: BUPIVAcaine/PF 2.5 mg/ml (0.25%) 30ml vial ONE (11:27)
[2022-12-13] MEDS ORDERED: BUPIVAcaine/PF 2.5 mg/ml (0.25%) 30ml vial IJ ONE (11:35)
[2022-12-13] MEDS: rivaroxaban 20mg tablet PO SCH (18:07)
[2022-12-13] MEDS: atorvastatin 20mg tablet PO SCH (20:52)
[2022-12-13] MEDS: insulin glargine (Lantus) pen - multi-dose SQ SCH (21:00)
[2022-12-14] VITALS (11 sets, daily range): BP systolic 55–126; BP diastolic 24–108; PULSE 11–111; RESP 16–25; TEMP 97–98; O2SAT 88–99
[2022-12-14] MEDS: cephalexin 250mg capsule PO SCH ×3 (00:38→16:07)
[2022-12-14] MEDS: HYDROcodone/acetaminophen 10/325mg tab PO PRN ×4 (04:53→18:40)
[2022-12-14 05:10] LABS: BASOPHILS # (AUTO) 0.1 X10'3 (0-0.2); BASOPHILS % (AUTO) 0.7 % (0-1); EOSINOPHILS # (AUTO) 0.3 X10'3 (0-0.9); EOSINOPHILS % (AUTO) 2.6 % (0-6); HEMATOCRIT 32.3 % (35.0-45.0); HEMOGLOBIN 10.2 g/dl (12.0-16.0); LYMPHOCYTES # (AUTO) 0.8 X10'3 (1.1-4.8); LYMPHOCYTES % (AUTO) 8.5 % (21-51); MEAN CORPUSCULAR HGB CONC 31.7 g/dL (33.0-36.5); MEAN CORPUSCULAR VOLUME 82.1 FL (78-98); MEAN PLATELET VOLUME 7.7 FL (7.4-10.4); MONOCYTES # (AUTO) 0.9 X10'3 (0-0.9); MONOCYTES % (AUTO) 9.8 % (2-12); NEUTROPHILS # (AUTO) 7.5 X10'3 (1.8-7.7); NEUTROPHILS % (AUTO) 78.4 % (42-75); PLATELET COUNT 407 X10'3 (140-440); RED BLOOD COUNT 3.93 X10'6 (4.20-5.60); RED CELL DISTRIBUTION WIDTH 20.9 % (11.5-14.5); WHITE BLOOD COUNT 9.6 X10'3 (4.5-11.0)
[2022-12-14 05:26] LABS: ALANINE AMINOTRANSFERASE 11 U/L (12-78); ALBUMIN 2.2 G/DL (3.4-5.0); ALBUMIN/GLOBULIN RATIO 0.5 (1.1-1.5); ALKALINE PHOSPHATASE 234 IU/L (46-116); ANION GAP 7 (8-16); ASPARTATE AMINO TRANSFERASE 44 U/L (10-37); BILIRUBIN,TOTAL 1.4 MG/DL (0.1-1.0); BLOOD UREA NITROGEN 67 MG/DL (7-18); BUN/CREATININE RATIO 59.8 (10.0-20.0); CALCIUM 8.7 MG/DL (8.5-10.1); CHLORIDE 97 MMOL/L (99-107); CREATININE 1.12 MG/DL (0.40-0.90); GLUCOSE 104 MG/DL (70-104); MAGNESIUM 1.6 MG/DL (1.5-2.4); PHOSPHORUS 4.8 MG/DL (2.3-4.5); POTASSIUM 4.3 MMOL/L (3.5-5.1); SODIUM 133 MMOL/L (135-145); TOTAL PROTEIN 6.9 G/DL (6.4-8.2); eCRCL 44 ML/MIN; eGFR 54 ML/MIN
[2022-12-14] MEDS: aspirin 81mg tab.chew PO SCH (07:04)
[2022-12-14] MEDS: furosemide 20 MG/2 ML vial IV SCH ×2 (07:04→20:07)
[2022-12-14] MEDS: gabapentin 300mg capsule PO SCH ×2 (07:04→20:07)
[2022-12-14] MEDS: K and/or MAG REPLACEMENT MC SCH ×2 (08:00→20:00)
[2022-12-14] MEDS ORDERED: sodium bicarbonate (8.4%) 1 mEq/ml syringe ONE (08:00)
[2022-12-14] MEDS ORDERED: epiNEPHrine 0.1mg/ml 10ml syringe ONE (08:00)
[2022-12-14] MEDS ORDERED: sod chloride 0.9% 10ml flush syringe IV ONE (08:00)
[2022-12-14] MEDS ORDERED: FENTANYL 1000MCG/NS 100 ML BAG /PF IV PRN (16:25)
[2022-12-14] MEDS ORDERED: midazolam 100mg in NS 100 ML INFUSION IV PRN (16:25)
[2022-12-14] MEDS ORDERED: midazolam 1 mg/ML 2ml injection ONE ×2 (16:46→16:47)
[2022-12-14 16:49] LABS: BASOPHILS # (AUTO) 0.1 X10'3 (0-0.2); BASOPHILS % (AUTO) 0.8 % (0-1); EOSINOPHILS # (AUTO) 0.4 X10'3 (0-0.9); EOSINOPHILS % (AUTO) 3.1 % (0-6); HEMATOCRIT 34.3 % (35.0-45.0); LYMPHOCYTES # (AUTO) 3.7 X10'3 (1.1-4.8); LYMPHOCYTES % (AUTO) 28.1 % (21-51); MEAN CORPUSCULAR HEMOGLOBIN 26.6 PG (27.0-31.0); MEAN CORPUSCULAR VOLUME 83.1 FL (78-98); MEAN PLATELET VOLUME 7.4 FL (7.4-10.4); MONOCYTES # (AUTO) 0.8 X10'3 (0-0.9); NEUTROPHILS # (AUTO) 8.2 X10'3 (1.8-7.7); PLATELET COUNT 406 X10'3 (140-440); RED BLOOD COUNT 4.12 X10'6 (4.20-5.60); RED CELL DISTRIBUTION WIDTH 21.2 % (11.5-14.5); WHITE BLOOD COUNT 13.3 X10'3 (4.5-11.0)
[2022-12-14 17:11] LABS: ALANINE AMINOTRANSFERASE 21 U/L (12-78); ALBUMIN 2.1 G/DL (3.4-5.0); ALBUMIN/GLOBULIN RATIO 0.4 (1.1-1.5); ALKALINE PHOSPHATASE 290 IU/L (46-116); ANION GAP 10 (8-16); ASPARTATE AMINO TRANSFERASE 56 U/L (10-37); BILIRUBIN,TOTAL 1.6 MG/DL (0.1-1.0); BLOOD UREA NITROGEN 65 MG/DL (7-18); BUN/CREATININE RATIO 48.5 (10.0-20.0); CALCIUM 8.7 MG/DL (8.5-10.1); CHLORIDE 95 MMOL/L (99-107); CREATININE 1.34 MG/DL (0.40-0.90); GLUCOSE 194 MG/DL (70-104); SODIUM 133 MMOL/L (135-145); TOTAL CARBON DIOXIDE 27.7 MMOL/L (24-32); TOTAL PROTEIN 7.3 G/DL (6.4-8.2); eCRCL 37 ML/MIN; eGFR 44 ML/MIN
[2022-12-14 17:18] LABS: TOTAL CELLS COUNTED 100
[2022-12-14 17:19] LABS: ANISOCYTOSIS 3+; MICROCYTOSIS 1+; PLATELET ESTIMATE INCREASED
[2022-12-14] MEDS ORDERED: epiNEPHrine 1 mg/ml 30ml MDV ONE (17:28)
[2022-12-14] MEDS ORDERED: fentaNYL/PF 50MCG/1 ML 2ML syringe IV PRN (17:40)
[2022-12-14] MEDS ORDERED: furosemide 40mg/4ml inj IV ONE (17:40)
[2022-12-14] MEDS ORDERED: FENTANYL-0.9 % NACL/PF 100 ML IV PRN (17:40)
[2022-12-14] MEDS ORDERED: midazolam 100mg in NS 100ml 100 ML IV PRN (17:40)
[2022-12-14] MEDS ORDERED: midazolam 1 mg/ML 2ml injection IV ONE (17:40)
[2022-12-14 17:48] LABS: ABG BASE EXCESS -8.6 mmol/L (-2.0-2.0); ABG HCO3 20.5 mmol/L (22.0-26.0); ABG OXYGEN SATURATION 87.3 % (94-97); ABG PCO2 (T) 61.8 mmHg (32.0-45.0); ABG PH (T) 7.142 (7.350-7.450); ABG PO2 (T) 73.9 mmHg (75.0-100.0); FCOHb 0.2 % (0.0-3.9); FHHb 12.6 % (0.0-5.0); FMetHb 0.3 % (0.0-1.5); FO2Hb 86.9 % (94-97); MODE VENT - AC/PRVC; PATIENT TEMPERATURE 37.4; PEEP 8 cm H2O; RESPIRATORY RATE 18 b/min; TIDAL VOLUME 400 mL; TOTAL HEMOGLOBIN 10.9 G/dl (12.0-16.0)
[2022-12-14] MEDS ORDERED: epiNEPHrine inj 5 MG in normal saline 250ml IV soln 245 ML IV SCH (17:50)
[2022-12-14] MEDS: rivaroxaban 20mg tablet PO SCH (18:00)
[2022-12-14] MEDS ORDERED: NORepinephrine 8mg/ 250ml NS 250 ML IV ONE (18:04)
[2022-12-14 19:19] LABS: BASOPHILS # (AUTO) 0.1 X10'3 (0-0.2); BASOPHILS % (AUTO) 0.3 % (0-1); EOSINOPHILS # (AUTO) 0.2 X10'3 (0-0.9); HEMATOCRIT 33.9 % (35.0-45.0); HEMOGLOBIN 10.5 g/dl (12.0-16.0); LYMPHOCYTES % (AUTO) 4.7 % (21-51); MEAN CORPUSCULAR HEMOGLOBIN 25.8 PG (27.0-31.0); MEAN CORPUSCULAR HGB CONC 30.9 g/dL (33.0-36.5); MEAN CORPUSCULAR VOLUME 83.5 FL (78-98); MEAN PLATELET VOLUME 7.8 FL (7.4-10.4); MONOCYTES # (AUTO) 0.6 X10'3 (0-0.9); MONOCYTES % (AUTO) 2.7 % (2-12); NEUTROPHILS # (AUTO) 20.3 X10'3 (1.8-7.7); NEUTROPHILS % (AUTO) 91.3 % (42-75); PLATELET COUNT 452 X10'3 (140-440); RED BLOOD COUNT 4.06 X10'6 (4.20-5.60); WHITE BLOOD COUNT 22.2 X10'3 (4.5-11.0)
[2022-12-14 19:26] LABS: INR 2.7 INR; PROTHROMBIN TIME 27.7 SECONDS (9.0-12.0)
[2022-12-14] MEDS: atorvastatin 20mg tablet PO SCH (20:34)
[2022-12-14] MEDS: insulin Lispro (HumaLOG) vial - multi-dose SQ SCH (20:37)
[2022-12-14] MEDS: insulin glargine (Lantus) pen - multi-dose SQ SCH (20:38)
[2022-12-14] MEDS ORDERED: MORPHINE SULFATE/PF 250 MG in normal saline 50ml IV soln 40 ML IV SCH (21:00)
[2022-12-14] MEDS ORDERED: morphine/NS 100mg/100ml bag 100 ML IV SCH ×2 (21:10→21:15)
[2022-12-15] MEDS ORDERED: mineral oil/petrolatum ophthal oint EACHEYE SCH (20:00)
== END 2022-12-14 23:23 | DRG 208 ==
LOC: ER 15:01 → UNDOADMIN 19:22 → ED HOLD 19:22 → EDBEDREQ 11-29 09:06 → PCU 3S 11-29 10:12 → ORTHO 4S 12-06 21:00 → UNDODISIN 12-09 14:15 → ORTHO 4S 12-09 16:05 → CICU 2S 12-14 17:10
PROVIDERS: ADMIT Internal Medicine; ATTEND Internal Medicine
PROC: BW241ZZ Computerized Tomography (CT Scan) of Chest and Abdomen using Low Osmolar Contrast (ICD-10-PCS; 2022-12-01)
PROC: 0X980ZZ Drainage of Right Upper Arm, Open Approach (ICD-10-PCS; 2022-12-13)
PROC: 5A1935Z Respiratory Ventilation, Less than 24 Consecutive Hours (ICD-10-PCS; principal; 2022-12-14)
PROC: 06HY33Z Insertion of Infusion Device into Lower Vein, Percutaneous Approach (ICD-10-PCS; 2022-12-14)
PROC: 4A133B1 Monitoring of Arterial Pressure, Peripheral, Percutaneous Approach (ICD-10-PCS; 2022-12-14)
PROC: 0BH17EZ Insertion of Endotracheal Airway into Trachea, Via Natural or Artificial Opening (ICD-10-PCS; 2022-12-14)
PROC: 5A12012 Performance of Cardiac Output, Single, Manual (ICD-10-PCS; 2022-12-14)
DX: J96.01 Acute respiratory failure with hypoxia (principal); I50.23 Acute on chronic systolic (congestive) heart failure; L02.413 Cutaneous abscess of right upper limb; N39.0 Urinary tract infection, site not specified; I31.39 Other pericardial effusion (noninflammatory); I42.7 Cardiomyopathy due to drug and external agent; I11.0 Hypertensive heart disease with heart failure; S40.021A Contusion of right upper arm, initial encounter; F15.10 Other stimulant abuse, uncomplicated; E10.649 Type 1 diabetes mellitus with hypoglycemia without coma; E83.42 Hypomagnesemia; I46.9 Cardiac arrest, cause unspecified; R47.81 Slurred speech; E78.5 Hyperlipidemia, unspecified; I25.10 Atherosclerotic heart disease of native coronary artery without angina pectoris; I51.3 Intracardiac thrombosis, not elsewhere classified; E10.42 Type 1 diabetes mellitus with diabetic polyneuropathy; X58.XXXA Exposure to other specified factors, initial encounter; T43.625A Adverse effect of amphetamines, initial encounter; E86.0 Dehydration; I45.10 Unspecified right bundle-branch block; Z66 Do not resuscitate; G89.29 Other chronic pain; Z89.512 Acquired absence of left leg below knee; Z89.511 Acquired absence of right leg below knee; Z86.73 Personal history of transient ischemic attack (TIA), and cerebral infarction without residual deficits; Z95.1 Presence of aortocoronary bypass graft; Z88.6 Allergy status to analgesic agent; Z88.5 Allergy status to narcotic agent; Z88.8 Allergy status to other drugs, medicaments and biological substances; Z79.899 Other long term (current) drug therapy; Z79.82 Long term (current) use of aspirin; Z79.4 Long term (current) use of insulin; Z87.891 Personal history of nicotine dependence; Z82.49 Family history of ischemic heart disease and other diseases of the circulatory system; Z86.718 Personal history of other venous thrombosis and embolism; Z91.148 Patient's other noncompliance with medication regimen for other reason; Z91.199 Patient's noncompliance with other medical treatment and regimen due to unspecified reason; Z51.5 Encounter for palliative care; Z88.1 Allergy status to other antibiotic agents; Z59.00 Homelessness unspecified; Y93.89 Activity, other specified; Y92.89 Other specified places as the place of occurrence of the external cause; Y99.8 Other external cause status; I25.2 Old myocardial infarction; Z79.01 Long term (current) use of anticoagulants
CPT/HCPCS: 36415; 36600; 71045; 71260; 73200; 76604; 80048; 80053; 80061; 82550; 82803; 82948; 83036; 83605; 83735; 83880; 84100; 84145; 84484; 85007; 85008; 85018; 85025; 85610; 87040; 87070; 87075; 87077; 87081; 87186; 92950; 93005; 93306; 93971; 94002; 94760; 97110; 97161; 97530; 97535; 99285; A4615; A4620; A4649; A6209; A6212; A6213; A6222; A6224; A6250; A6253; A6260; A6446; A6449; C1751; C1758; C1894; G0378; J0171; J1650; J1815; J1940; J1956; J2250; J2274; J2405; J2704; J3010; J3370; J3490; J7030; J7040; J7050; P9045; Q9967